=== PATIENT | male | born 1950 | race Caucasian/White ===

== ENCOUNTER → 2016-12-17 | Outpatient (CLI) | payer OTHER ==
[~2016-12-17] MED LIST: ACET-1256 PO; AMOX875T PO; ASPI81TA28 PO; BENZ100C84 PO; FLUT0.15 NAE; MELO7.5T5 PO; METH4PAK PO; OXYC-57 PO; PROP300T PO; QVRINH80 INH; SIMV40TA2 PO; TAMS0.4C38 PO; VNTHFA/IN INH
--- NOTE | 2016-12-17 13:54 | DIAGNOSTIC IMAGING REPORT ---
CHEST 2 VIEWS ROUTINE CLINICAL HISTORY: Cough, chest congestion, wheezing COMPARISON STUDY: No previous studies for comparison. FINDINGS: The cardiac and mediastinal contours are normal. There is no evidence of focal pulmonary consolidation. There is no evidence of failure. No pleural effusions are visualized.[ IMPRESSION: No active disease in the chest. Electronically signed by: Drew Shipley M.D. 12/17/2016 1:53 PM Dictated Date/Time: 12/17/2016 1:52 PM
== END | disposition home or self-care (01) ==
LOC: C.RAD 13:26
PROVIDERS: ATTEND Physician Assistant Medical
DX: J22 Unspecified acute lower respiratory infection (principal)

== ENCOUNTER → 2017-01-07 | Outpatient (CLI) | payer OTHER ==
--- NOTE | 2017-01-07 11:14 | DIAGNOSTIC IMAGING REPORT ---
SINUSES WITH BRAIN LAB CT DOSE: 611.57 mGy.cm HISTORY: Chronic sinusitis CHRONIC SINUSITIS TECHNIQUE: Multiaxial CT images of the paranasal sinuses were performed and reformatted in the coronal plane without the use of contrast. A dose lowering technique was utilized adhering to the principles of ALARA. COMPARISON: None. FINDINGS: Mild mucosal thickening of all major sinuses. Bilateral antral window placement is noted. These are patent although showing moderate soft tissue narrowing bilaterally. There are considerable hyperplastic change of the nasal turbinates with moderate nasal occlusive change. The [place] ostiomeatal unit on the right is patent. It shows soft tissue occlusion of the left. Orbital margins are intact. There is no bony destructive process. The mastoid air cells are clear. The orbits are unremarkable. IMPRESSION: 1. Moderate mucosal thickening of all major sinuses. 2. Hyperplastic change of the nasal turbinates creating moderate nasal occlusive change. 3. Operative changes consistent with antral window placement and bilateral partial ethmoidectomies. 4. Moderate soft tissue narrowing of the antral windows although late show no evidence for complete occlusion. 5. The ostiomeatal unit on the left shows soft tissue occlusion although it is patent on the right. The above report was generated using voice recognition software. It may contain grammatical, syntax or spelling errors. Electronically signed by: Baljit Chavez M.D. 01/07/2017 11:13 AM Dictated Date/Time: 01/07/2017 11:10 AM
== END | disposition home or self-care (01) ==
LOC: C.CTS 11:00
PROVIDERS: ATTEND Otolaryngology
DX: J32.0 Chronic maxillary sinusitis (principal); J32.1 Chronic frontal sinusitis; J32.2 Chronic ethmoidal sinusitis

== ENCOUNTER → 2017-01-15 | Outpatient (CLI) | payer OTHER ==
[~2017-01-15] MED LIST changes: -ACET-1256 PO; -PROP300T PO
--- NOTE | 2017-01-16 12:30 | History and Physical: Surg Cnt ---
History & Physical Date Jan 16, 2017. Chief Complaint sinus infections History of Present Illness The patient is a 66 year old male with complaints of chronic sinusitis Additional History Hepatic Disease: No Endocrine Disorder: No Kidney Disease: No Hypertension: No Heart Disease: Yes Bleeding Tendencies: No Infectious Diseases: No Allergies Coded Allergies: Adhesives (Verified Allergy, Unknown, RED RASH/IRRITATION, 01/08/17) NO KNOWN DRUG ALLERGIES (Verified Allergy, Unknown, ., 01/08/17) Home Medications Scheduled Amoxicillin & Pot Clavulanate (Augmentin 875-125 mg), 1 TAB PO BID Aspirin (Aspirin Ec), 81 MG PO QAM Beclomethasone Dip (Qvar), 2 SPRAY INH BID Meloxicam (Mobic), 7.5 MG PO QAM Methylprednisolone (Medrol Dosepak), 1 PKT PO UD Simvastatin (Zocor), 40 MG PO QAM Tamsulosin Hcl (Flomax), 0.4 MG PO QAM Scheduled PRN Albuterol Hfa (Ventolin Hfa), 2-4 PUFFS INH Q6H PRN for SOB/Wheezing Benzonatate (Tessalon Perles), 100 MG PO TID PRN for Cough Fluticasone Propionate (Nasal) (Flonase Allergy Relief), 2 SPRAYS BOB DAILY PRN for ALLERGIES Physical Examination Skin: warm/dry, no rash Eyes: normal inspection, EOMI, sclerae normal ENT: normal ENT inspection, pharynx normal Head: normocephalic, atraumatic Neck: supple, no adenopathy, trachea midline Respiratory/Chest: lungs clear, normal breath sounds, no respiratory distress Cardiovascular: regular rate, rhythm, no edema, no murmur Abdomen / GI: normal bowel sounds, non tender Back: normal inspection Extremities: normal inspection, normal range of motion Neurologic/Psych: no motor/sensory deficits, alert, normal reflexes, oriented x 3 Diagnosis chronic sinusitis Plan of Treatment endoscopic sinus surgery
== END | disposition home or self-care (01) ==
LOC: C.CPL 13:22
PROVIDERS: ATTEND Otolaryngology
DX: Z01.810 Encounter for preprocedural cardiovascular examination (principal)

== ENCOUNTER → 2017-01-17 | Day surgery (SDC) | payer OTHER ==
[2017-01-08 14:11] VITALS: Ht 175.3 cm; Wt 84.1 kg
[~2017-01-17] VITALS: Ht 175.3 cm; Wt 84.1 kg
[~2017-01-17] MED LIST changes: +ALBUT/IPRATROP 3MG/0.5MG NEB 3 ML VIAL INH ONE; +ALBUT/IPRATROP 3MG/0.5MG NEB 3 ML VIAL ONE; +ATROPINE SULFATE 0.1 MG/ML 5ML SYR IV PRN; +CEFAZOLIN 2000 MG/60 ML D5W IV SCH; +DEXAMETHASONE SOD INJ 4 MG/ML VIAL ONE; +EpHEDrine SULFATE INJ 50 MG/ML AMP IV PRN; +EpHEDrine SULFATE INJ 50 MG/ML AMP ONE; +EpINEphrine INJ 1MG/ML AMP 1 MG/ML AMP ONE; +FENTANYL CITRATE INJ 50 MCG/1 ML 2 ML VIAL IV PRN; +FENTANYL CITRATE INJ 50 MCG/1 ML 2 ML VIAL ONE; +LACTATED RINGER'S 1000ML 1,000 ML IV SCH; +LIDO 2%/EPINEPHRINE 1:100000 20 ML VIAL INFIL ONE; +LIDOCAINE 4% MPF SOAK 5 ML = 1 DOSE TOP ONE; +LIDOCAINE HCL 2% 2 ML VIAL (20MG/ML) ONE; +MIDAZOLAM HCL 1 MG/ML 2ML VIAL ONE; +ONDANSETRON INJ 2 MG/ML 2 ML VIAL IV PRN; +ONDANSETRON INJ 2 MG/ML 2 ML VIAL ONE; +OXYCODONE/ACETAMINOPHEN 5-325 TAB PO PRN; +PROPOFOL IV EMULSION 10 MG/ML 20 ML VIAL IV ONE; +SODIUM CHLORIDE 0.9% 1000ML 1,000 ML IV SCH; +SODIUM CHLORIDE 0.9% INJ 10 ML VIAL ONE
--- NOTE | 2017-01-17 10:09 | History & Physical Bridge Note ---
H&P Re-Evaluation Bridge Note: I have examined the patient, reviewed the History & Physical and in the interval since the performance of the History & Physical I have noted the following changes of clinical significance: No changes noted
--- NOTE | 2017-01-17 10:15 | Discharge Instructions-SurgCtr ---
Discharge Instructions Date of Service Jan 17, 2017. Visit Reason for Visit: Chronic Sinusitis Discharge Discharge Diagnosis / Problem: same Discharge Goals Goal(s): Improve disease control Medications Stopped Medications Name(s): Pt. was told to stop Mobic and ASA 01/14/17. Activity Recommendations Activity Limitations: resume your previous activity Anesthesia . Post Anesthesia Instructions: If you have had General Anesthesia or IV Sedation: * Do not drive today. * Resume driving when surgeon permits. * Do not make important decisions or sign legal documents today. * Call surgeon for: 1. Temperature elevations greater than 101 degrees F. 2. Uncontrollable pain. 3. Excessive bleeding. 4. Persistent nausea and vomiting. 5. Medication intolerance (nausea, vomiting or rash). * For nausea and vomiting use only clear liquids such as: tea, soda, bouillon until nausea subsides, then gradually increase diet as tolerated. * If you have any concerns or questions, call your surgeon's office. If physician is unavailable and it is an emergency, call 911 or go to the nearest emergency room. . Instructions / Follow-Up Instructions / Follow-Up ACTIVITY RECOMMENDATIONS: * Being up and around is good, but no strenuous activity, heavy lifting or physical exertion for one week. * Keep your head elevated 30 degrees when lying down or sleeping. * Do not blow your nose for 48 hours, sniff back instead. * Avoid hot showers. OVER THE COUNTER MEDICATIONS: * You may use Tylenol * Avoid aspirin or aspirin containing products, e.g. as they may increase bleeding. SPECIAL CARE INSTRUCTIONS: * Expect to have bloody drainage from your nose and/or down your throat for one to three days. Change drip pad as needed. * Begin irrigating your nose with saline solution today, at least six to ten times per day and sniff back to help remove old clots or crust. * You may experience nasal and facial congestion, pain and pressure, this is normal. * Please call with any significant and/or progressive pain, redness, swelling around the eyes, visual changes, fever of 101.5 degrees F, active bleeding or any problems or concerns. * If active bleeding occurs, spray the nose three times at one minute intervals with Afrin spray and call or cell phone: . If unable to reach the doctor, go to the nearest Emergency Department. Special Diet: * Avoid extremely hot fluids. FOLLOW UP VISIT: Follow-up Visit with Dr. Espinosa If not already scheduled, please call to schedule. Diet Recommendations Home Diet: no limitations Pending Studies Studies pending at discharge: no Medical Emergencies . Who to Call and When: Medical Emergencies: If at any time you feel your situation is an emergency, please call 911 immediately. . Non-Emergent Contact Non-Emergency issues call your: Primary Care Provider . . "Provider Documentation" section prepared by Joanna Espinosa. .
--- NOTE | 2017-01-17 11:49 | [facility] Operative Report ---
Operative Report Operative Date Jan 17, 2017. Pre-Operative Diagnosis Chronic Sinusitis Post-Operative Diagnosis Same Procedure(s) Performed Endoscopic Sinus Surgery With Mobile Patrollab Navigation, Right & Left Sphenoid, Right & Left Frontal, Right & Left Total Ethmoid, Right & Left Maxillary Surgeon Dr. Espinosa [employer] Jointer Surgeon(s) None Estimated Blood Loss 40 mL Findings Polyps blocking the sphenoid and frontal sinuses and filling the ethmoid cavities. Bilateral missed maxillary sinus ostia syndrome. Specimens None Drains none Anesthesia LMA Complication(s) None Disposition Recovery Room / PACU Implants 4 propel implants Indications 66-year-old gentleman who had sinus surgery and [facility] 9 years ago developed significant sinusitis complicated by significant bronchitis failing antibiotic treatment. CT documented opacified sinuses. Description of Procedure The patient was brought to the operating room placed in supine position. General endotracheal anesthesia was induced. Iwebalize device was calibrated and used for the entire procedure. The nose was decongested using cottonoids with the topical solution of 4 mL of 4% Xylocaine mixed with 1 mL of epinephrine. Injection of 2% Xylocaine with 1 100,000 strength epinephrine was also used. The right sphenoid was cannulated with the guidewire and dilated using the 6 mm balloon as was the left sphenoid. Polyps block the sphenoid openings. The right nasal frontal duct was cannulated with the guidewire with Mobile Patrol[employer] computer guidance and dilated using the 6 mm balloon. The guidewire was left in place as a marker and frontal sinusotomy was performed with the shaver couple with the Mobile [employer] device removing the anterior wall than the posterior wall of the agger nasi cell widely opening up the nasal frontal duct. At this point total ethmoidectomy was performed removing polyps and scar tissue delineating the skull base superiorly and lamina papyracea laterally and following the structures anteriorly exonerating all the posterior and then all the anterior ethmoids up to the previously dilated nasal frontal duct. The right maxillary sinus was found using the seeker this had to be connected to the antrostomy opening using the shaver couple with the [employer] device creating one common antrostomy opening. The left frontal sinusotomy sphenoidotomy total ethmoidectomy and maxillary sinus antrostomies were performed in a in a similar manner. The sphenoid sinuses had to be opened removing polypoid tissue from the inferior border of the superior turbinates bilaterally. Mini propel stents were placed in the nasal frontal duct and regular propel stents were placed in the ethmoid cavity. The patient tolerated procedure well and was taken to the recovery area in satisfactory condition I attest to the content of the Intraoperative Record and any orders documented therein. Any exceptions are noted below.
[2017-01-17 12:33] VITALS: TEMP 36.4
--- NOTE | 2017-01-17 12:58 | Anesthesia Progress Nt - [facility] ---
Anesthesia Post Op Note Date & Time Jan 17, 2017 at 12:58 Vital Signs Pain Intensity: 0 Vital Signs Past 12 Hours Date Time Temp Pulse Resp B/P (MAP) Pulse Ox O2 Delivery O2 Flow Rate FiO2 01/17/17 12:33 36.4 61 16 105/65 (78) 93 Room Air 01/17/17 12:13 36.5 51 16 116/79 (93) 95 Room Air Humidified Air 01/17/17 12:07 55 14 93 01/17/17 12:07 55 14 01/17/17 12:06 117/74 01/17/17 12:02 57 13 01/17/17 12:02 58 13 109/73 93 01/17/17 11:57 55 1 96 01/17/17 11:57 55 1 01/17/17 11:56 112/67 01/17/17 11:52 56 5 01/17/17 11:52 56 5 94 01/17/17 11:51 116/74 01/17/17 11:47 57 11 97 01/17/17 11:47 57 11 01/17/17 11:46 127/71 01/17/17 11:43 59 4 01/17/17 11:43 58 4 97 01/17/17 11:41 133/75 01/17/17 11:39 123/77 01/17/17 11:38 64 93 01/17/17 11:38 36.5 75 14 123/77 95 Humidified Air 6 01/17/17 11:38 64 01/17/17 09:07 36.4 49 16 119/79 (92) 95 Room Air Notes Mental Status: alert / awake / arousable, participated in evaluation Pt Amnestic to Procedure: Yes Nausea / Vomiting: adequately controlled Pain: adequately controlled Airway Patency, RR, SpO2: stable & adequate BP & HR: stable & adequate Hydration State: stable & adequate Anesthetic Complications: no major complications apparent
[2017-01-17 13:13] VITALS: BP 123/74; PULSE 67; O2SAT 92
== END | disposition home or self-care (01) ==
LOC: X.SURG 08:48
PROVIDERS: ATTEND Otolaryngology
DX: J32.9 Chronic sinusitis, unspecified (principal); J33.8 Other polyp of sinus; Z79.82 Long term (current) use of aspirin; Z79.899 Other long term (current) drug therapy

== ENCOUNTER → 2017-04-02 | Outpatient (CLI) | payer OTHER ==
[~2017-04-02] MED LIST changes: -ALBUT/IPRATROP 3MG/0.5MG NEB 3 ML VIAL INH ONE; -ALBUT/IPRATROP 3MG/0.5MG NEB 3 ML VIAL ONE; -ATROPINE SULFATE 0.1 MG/ML 5ML SYR IV PRN; -CEFAZOLIN 2000 MG/60 ML D5W IV SCH; -DEXAMETHASONE SOD INJ 4 MG/ML VIAL ONE; -EpHEDrine SULFATE INJ 50 MG/ML AMP IV PRN; -EpHEDrine SULFATE INJ 50 MG/ML AMP ONE; -EpINEphrine INJ 1MG/ML AMP 1 MG/ML AMP ONE; -FENTANYL CITRATE INJ 50 MCG/1 ML 2 ML VIAL IV PRN; -FENTANYL CITRATE INJ 50 MCG/1 ML 2 ML VIAL ONE; -LACTATED RINGER'S 1000ML 1,000 ML IV SCH; -LIDO 2%/EPINEPHRINE 1:100000 20 ML VIAL INFIL ONE; -LIDOCAINE 4% MPF SOAK 5 ML = 1 DOSE TOP ONE; -LIDOCAINE HCL 2% 2 ML VIAL (20MG/ML) ONE; -MIDAZOLAM HCL 1 MG/ML 2ML VIAL ONE; -ONDANSETRON INJ 2 MG/ML 2 ML VIAL IV PRN; -ONDANSETRON INJ 2 MG/ML 2 ML VIAL ONE; +OPTIRAY 320 IV PRN; -OXYCODONE/ACETAMINOPHEN 5-325 TAB PO PRN; -PROPOFOL IV EMULSION 10 MG/ML 20 ML VIAL IV ONE; -SODIUM CHLORIDE 0.9% 1000ML 1,000 ML IV SCH; -SODIUM CHLORIDE 0.9% INJ 10 ML VIAL ONE
--- NOTE | 2017-04-02 13:27 | DIAGNOSTIC IMAGING REPORT ---
CT SCAN OF THE CHEST WITH IV CONTRAST CLINICAL HISTORY: Chronic cough. COMPARISON STUDY: Chest x-ray dated 12/17/2016. TECHNIQUE: Following the IV administration of 93 cc of Optiray 320, CT scan of the thorax was performed from the thoracic inlet to the upper abdomen. Images are reviewed in the axial, sagittal, and coronal planes. IV contrast was administered without complication. A dose lowering technique was utilized adhering to the principles of ALARA. CT DOSE: 436.68 mGycm FINDINGS: Thyroid: Imaged portions of the thyroid gland are normal in size and attenuation. Thoracic aorta: The thoracic aorta is normal in caliber and demonstrates standard 3-vessel arch anatomy. No dissection is seen. Pulmonary vasculature: The main pulmonary arteries are mildly dilated suggesting pulmonary artery hypertension. There are no filling defects identified in the central pulmonary vessels to indicate pulmonary embolus. Note that this examination was not protocoled for evaluation of the pulmonary arteries. Heart: The heart is enlarged and there is a small pericardial effusion. The coronary arteries are densely calcified. Lungs and pleural spaces: The lungs and pleural spaces are clear noting dependent atelectasis. The trachea and central airways are patent. Mediastinum: There is no mediastinal lymphadenopathy. Jazmin: Clear. Axillae: There is no axillary lymphadenopathy. Upper abdomen: Partially visualized upper abdominal viscera is within normal limits. Skeletal structures: Advanced arthritic changes present in the shoulders, right significantly greater than left. No lytic or blastic bony lesions are seen. IMPRESSION: 1. The lungs are clear. 2. Cardiomegaly. 3. No mediastinal or hilar adenopathy is seen. Electronically signed by: Ezequiel Celestin M.D. 04/02/2017 1:25 PM Dictated Date/Time: 04/02/2017 1:22 PM
== END | disposition home or self-care (01) ==
LOC: C.CTS 12:19
PROVIDERS: ATTEND Internal Medicine Critical Care Medicine
DX: R05 Cough (principal); I51.7 Cardiomegaly